=== PATIENT | male | born 1960 | race Caucasian/White ===

== ENCOUNTER → 2017-01-02 | Day surgery (SDC) | payer BC ==
[~2017-01-02] MED LIST: BENI5TAB4 PO; INCOBOTULINUMTOXINA 200 UNITS VIAL IM ONE; NAPR250T PO; PERC5TAB12 PO; SODIUM CHLORIDE 0.9% 10 ML VIAL ONE
--- NOTE | 2017-01-02 22:57 | M6 ---
cc: PEDRO PABLO ROCK M.D. DATE 01/02/2017 1960 PROCEDURE Injection botulinum toxin type A (Xeomin) left trapezius and posterior cervical musculature. History and physical was completed and signed. Consent was signed. Procedure site was marked. Medications were listed and reconciled. Pain score was recorded. Allergies were noted. Time out was taken. Fluoroscopy time was recorded where applicable. Blood pressure cuff, pulse oximeter were applied. The patient was placed in the sitting position. The skin over the left trapezius and cervical area was prepped with alcohol. The areas of greatest spasticity were identified. A 27 gauge needle was used to inject a total of 200 units of Xeomin at six different locations corresponding to the areas of greatest spasticity. Following this, the patient was observed in recovery area with stable vital signs prior to being discharged. W. MD SHAILESH Nielsen/ /7:30 AM /10:55 PM
== END | disposition home or self-care (01) ==
LOC: PHSDC 06:40
PROVIDERS: ATTEND Pain Medicine Interventional Pain Medicine
DX: M54.2 Cervicalgia (principal)
CPT/HCPCS: 64616; J0588